=== PATIENT | male | born 1940 | race African-American/Black ===

== ENCOUNTER 2020-12-04 08:41 | Observation (INO) ==
[2020-12-04] MEDS ORDERED: SODIUM CHLORIDE 0.9% 1,000 ML IV STA (15:24)
[2020-12-04 16:54] LABS: Eosinophils % 0.3 % (0.00-10.9); Hematocrit 41.6 VOL% (42.0-52.0); Hemoglobin 12.9 GM/DL (14.0-18.0); Immature Granulocytes % 0.3 %; Immature Granulocytes Absolute 0.02 #; Lymphocytes # 0.8 10*3/uL (1.4-4.0); Lymphocytes % 13.2 % (21.2-54.2); Mean Corpuscular Volume 96.1 FL (87-102); Mean Platelet Volume 11.5 FL (9.6-12.0); Monocytes % 8.4 % (1.7-12.7); Neutrophils % 77.8 % (38.7-73.9); Platelet Count 140 T/CUMM (130-400); Red Blood Count 4.33 MC/CUMM (3.8-5.5); Red Cell Distribution Width 13.1 % (9.3-17.3); White Blood Count 6.3 T/CUMM (4-12)
[2020-12-04 17:14] LABS: Bilirubin,Total 0.7 MG/DL (0.20-1.00); Calcium 9.7 MG/DL (8.5-10.1); Osmolality,Calculated 279.5 MOS/KG (273-304); Potassium 4.8 MMOL/L (3.5-5.1); Total Protein 7.4 G/DL (6.4-8.2)
[2020-12-04 17:37] LABS: Bilirubin,Urine Negative (Negative); Blood, Urine Negative (Negative); Glucose,Urine (UA) Negative (Negative); Hyaline Casts,Urine 4 /LPF (0-3); Ketones,Urine 5 mg/dL (Negative); Mucus,Urine Occasional /LPF (Occasional); Nitrite,Urine Negative (Negative); Protein,Urine Negative; Urine Appearance CLEAR (Clear); Urine Color Yellow (Yellow); Urine Specific Gravity 1.019 (1.001-1.035); Urine Urobilinogen < 2.0 EU/DL (0.2-1.0)
[2020-12-04] MEDS ORDERED: ONDANSETRON 4 MG/2 ML VIAL IV PRN (18:43)
[2020-12-04] MEDS ORDERED: ACETAMINOPHEN 325 MG TABLET PO PRN (18:43)
[2020-12-04] MEDS: DOCUSATE SODIUM 100 MG CAPSULE PO SCH (21:26)
[2020-12-04] MEDS: SODIUM CHLORIDE 0.9% 1,000 ML IV SCH (21:26)
[2020-12-05] MEDS: SODIUM CHLORIDE 0.9% 1,000 ML IV SCH ×3 (02:58→20:00)
[2020-12-05] MEDS: DOCUSATE SODIUM 100 MG CAPSULE PO SCH ×2 (09:19→20:57)
[2020-12-05] MEDS: POTASSIUM CHLORIDE 20 MEQ TABLET PO SCH (09:19)
[2020-12-05] MEDS: CITALOPRAM 20 MG TABLET PO SCH (09:19)
[2020-12-05] MEDS: PANTOPRAZOLE 40 MG TABLET PO SCH (09:19)
[2020-12-05] MEDS ORDERED: LORazepam 1 MG TABLET ONE (11:26)
[2020-12-05] MEDS ORDERED: LORazepam 2 MG/1 ML VIAL IM ONE (11:28)
[2020-12-05] MEDS ORDERED: LORazepam 2 MG/1 ML VIAL ONE (11:29)
[2020-12-05 11:59] LABS: Basophils % 0.2 % (0.0-0.8); Eosinophils # 0.1 10*3/uL (0.0-0.87); Hematocrit 37.3 VOL% (42.0-52.0); Hemoglobin 11.6 GM/DL (14.0-18.0); Immature Granulocytes % 0.2 %; Immature Granulocytes Absolute 0.01 #; Lymphocytes # 1.3 10*3/uL (1.4-4.0); Lymphocytes % 24.3 % (21.2-54.2); Mean Corpuscular HGB Conc 31.1 GM/DL (32-36); Mean Corpuscular Volume 96.1 FL (87-102); Mean Platelet Volume 10.6 FL (9.6-12.0); Neutrophils % 65.3 % (38.7-73.9); Platelet Count 131 T/CUMM (130-400); Red Blood Count 3.88 MC/CUMM (3.8-5.5); Red Cell Distribution Width 13.1 % (9.3-17.3); White Blood Count 5.2 T/CUMM (4-12)
[2020-12-05 12:29] LABS: Albumin 3.4 G/DL (3.4-5.0); Bilirubin,Total 0.6 MG/DL (0.20-1.00); Calcium 8.5 MG/DL (8.5-10.1); Osmolality,Calculated 283.4 MOS/KG (273-304); Potassium 3.7 MMOL/L (3.5-5.1); Total Protein 6.7 G/DL (6.4-8.2)
[2020-12-05 12:49] LABS: Hypochromasia Slight; Ovalocytes 1+
[2020-12-05] MEDS: MEMANTINE 10 MG TABLET PO SCH ×2 (13:51→21:43)
[2020-12-05] MEDS ORDERED: RIVAROXABAN 20 MG TABLET PO SCH (18:00)
[2020-12-05] MEDS: risperiDONE 0.5 MG TABLET PO SCH (20:57)
[2020-12-05] MEDS ORDERED: DONEPEZIL 10 MG TABLET PO SCH (21:00)
[2020-12-05] MEDS ORDERED: SERTRALINE 25 MG TABLET PO SCH (21:00)
[2020-12-06 05:33] LABS: Basophils % 0.2 % (0.0-0.8); Eosinophils # 0.1 10*3/uL (0.0-0.87); Eosinophils % 2.4 % (0.00-10.9); Hematocrit 31.9 VOL% (42.0-52.0); Hemoglobin 10.3 GM/DL (14.0-18.0); Immature Granulocytes % 0.2 %; Immature Granulocytes Absolute 0.01 #; Lymphocytes # 1.1 10*3/uL (1.4-4.0); Lymphocytes % 25.7 % (21.2-54.2); Mean Corpuscular HGB Conc 32.3 GM/DL (32-36); Mean Corpuscular Volume 96.1 FL (87-102); Mean Platelet Volume 11.7 FL (9.6-12.0); Monocytes % 8.3 % (1.7-12.7); Neutrophils % 63.2 % (38.7-73.9); Platelet Count 105 T/CUMM (130-400); Red Blood Count 3.32 MC/CUMM (3.8-5.5); Red Cell Distribution Width 13.3 % (9.3-17.3); White Blood Count 4.2 T/CUMM (4-12)
[2020-12-06 06:19] LABS: Albumin 2.8 G/DL (3.4-5.0); Bilirubin,Total 0.6 MG/DL (0.20-1.00); Calcium 8.4 MG/DL (8.5-10.1); Osmolality,Calculated 282.1 MOS/KG (273-304); Potassium 4.2 MMOL/L (3.5-5.1); Total Protein 5.8 G/DL (6.4-8.2)
[2020-12-06] MEDS: PANTOPRAZOLE 40 MG TABLET PO SCH (09:23)
[2020-12-06] MEDS: MEMANTINE 10 MG TABLET PO SCH (09:23)
[2020-12-06] MEDS: CITALOPRAM 20 MG TABLET PO SCH (09:23)
[2020-12-06] MEDS: POTASSIUM CHLORIDE 20 MEQ TABLET PO SCH (09:23)
[2020-12-06] MEDS: risperiDONE 0.5 MG TABLET PO SCH (09:23)
[2020-12-06] MEDS: DOCUSATE SODIUM 100 MG CAPSULE PO SCH (09:24)
[2020-12-06 17:09] VITALS: BP 112/56
== END 2020-12-06 18:23 | disposition home or self-care (01) ==
LOC: N.ED 08:41 → N.EDINP 08:41 → N.TELES 20:00
PROVIDERS: ADMIT Family Medicine; ATTEND Family Medicine